=== PATIENT | female | born 1985 | race Caucasian/White ===

== ENCOUNTER 2021-04-09 15:02 | Inpatient (IN) | payer MEDICAID ==
[~2021-04-09] VITALS: Ht 154.9 cm; Wt 88.9 kg
[2021-04-09] MEDS ORDERED: PREN27TA7 OR (16:42)
[2021-04-09 18:10] LABS: Amphetamine Screen, Urine NEGATIVE (NEGATIVE); Barbiturate Scree,Urine NEGATIVE (NEGATIVE); Benzodiazephine Screen, Urine NEGATIVE (NEGATIVE); Cannabinoid Screen, Urine POSITIVE (NEGATIVE); Cocaine Screen, Urine NEGATIVE (NEGATIVE); Opiate Scree,Urine NEGATIVE (NEGATIVE); Phencyclidine Screen, Urine NEGATIVE (NEGATIVE)
[2021-04-09] MEDS ORDERED: BETAMETHASONE ACET (30mg/5ml) 5ml Vial 6mg/ml IM ONE (18:30)
[2021-04-09] MEDS ORDERED: AMPICILLIN SOD 2GM INJ 2 GM in SODIUM CHL 0.9% 100 ML IV SCH (19:00)
[2021-04-09] MEDS ORDERED: ERYTHROMYCIN LACTOBIONATE 250 MG in SODIUM CHL 0.9% 100 ML IV SCH (20:00)
[2021-04-09] MEDS ORDERED: TERBUTALINE SULFATE 1 MG/ML 1ML VIAL SC ONE (20:45)
== END 2021-04-09 22:01 | disposition short-term general hospital (02) | DRG 566 ==
LOC: LDRP 15:02 → OBSVTOIN 18:20 → LDRP 21:34
PROVIDERS: ADMIT Obstetrics & Gynecology Obstetrics; ATTEND Obstetrics & Gynecology Obstetrics
DX: O42.913 Preterm premature rupture of membranes, unspecified as to length of time between rupture and onset of labor, third trimester (principal); Z20.822 Contact with and (suspected) exposure to COVID-19; Z3A.33 33 weeks gestation of pregnancy
CPT/HCPCS: 36415; 59025; 76815; 76817; 80307; 81002; 84112; 87081; 87426; 94760; 96360; 96372; G0378

== ENCOUNTER 2022-01-16 11:03 | Emergency (ER) | payer MEDICAID ==
[~2022-01-16] VITALS: Ht 157.5 cm; Wt 81.1 kg
[~2022-01-16 11:03] MED LIST: PREN27TA7 OR
[2022-01-16 11:05] VITALS: BP 128/72
[2022-01-16] MEDS ORDERED: PENICILLIN G BENZ 1200000 UNITS/2 ML SYRG IM ONE (12:45)
== END 2022-01-16 13:13 | disposition home or self-care (01) ==
LOC: ER 11:03
DX: O26.891 Other specified pregnancy related conditions, first trimester (principal); A53.0 Latent syphilis, unspecified as early or late; Z3A.12 12 weeks gestation of pregnancy
CPT/HCPCS: 96372; 99283; J0561